=== PATIENT | female | born 1965 | race Hispanic/Latino ===

== ENCOUNTER 2020-12-20 23:07 | Emergency (ER) | payer OTHER ==
[~2020-12-20] VITALS: Ht 160 cm; Wt 76.2 kg
[~2020-12-20 23:07] MED LIST: VALACYCLOVIR1000 MG PO; XODOL 7.5-3001 EACH PO
[2020-12-21] MEDS ORDERED: HYDROCODONE/APAP 10MG-325MG TAB PO ONE
[2020-12-21] MEDS ORDERED: HYDROCODON-ACE1 EAC9 PO (00:18)
[2020-12-24] MEDS ORDERED: ATORVASTATIN CA20 MG PO (13:21)
[2020-12-24] MEDS ORDERED: DEXILANT60 MG PO (13:32)
== END 2020-12-21 00:56 | disposition home or self-care (01) ==
LOC: ER 23:15
DX: S82.045A Nondisplaced comminuted fracture of left patella, initial encounter for closed fracture (principal); W01.0XXA Fall on same level from slipping, tripping and stumbling without subsequent striking against object, initial encounter; Y93.01 Activity, walking, marching and hiking; E78.5 Hyperlipidemia, unspecified; M81.0 Age-related osteoporosis without current pathological fracture
CPT/HCPCS: 99283

== ENCOUNTER → 2020-12-29 | Day surgery (SDC) | payer BC, OTHER ==
[~2020-12-29] MED LIST changes: +ATORVASTATIN CA20 MG PO; +BUPIVACAINE HCL 0.5% INJ 30 ML VIAL INJ ONE; +DEXAMETHASONE SOD PHOS INJ 4 MG/ML SDV ONE; +DEXILANT60 MG PO; +FENTANYL CITRATE/PF 100MCG/2 ML INJ ONE; +HYDROCODON-ACE1 EAC9 PO; +HYDROMORPHONE 1MG/1ML INJ ONE; +KETOROLAC TROMETHAMINE 30 MG/ML VIAL ONE; +LIDOCAINE 1% W/EPINEPHRINE 20 ML VIAL ONE; +LIDOCAINE HCL 2% LOCAL INJ 5 ML SDV VIAL INJ ONE; +MIDAZOLAM HCL 2 MG/2 ML VIAL ONE; +MUPIROCIN 2% OINT 22 GM TUBE ONE; +Morphine 4mg Syringe 4 MG/ML INJ ONE; +ONDANSETRON HCL INJ 2MG/ML 2ML 2 MG/ML VIAL ONE; +POVIDONE IODINE 0.05% 0.05 % ML PO ONE; +PROPOFOL IV EMULSION 10 MG/ML 20 ML VIAL ONE; +SEVOFLURANE INHAL SOLN 250 ML PEN BTL ONE; +SODIUM CHLORIDE 0.9% 50ML 50 ML ONE
[2020-12-29 12:45] VITALS: BP 171/92
== END | disposition home or self-care (01) ==
LOC: OR 08:22
PROVIDERS: ATTEND Specialist
DX: S82.042A Displaced comminuted fracture of left patella, initial encounter for closed fracture (principal); Z01.810 Encounter for preprocedural cardiovascular examination; Z01.812 Encounter for preprocedural laboratory examination; Z20.822 Contact with and (suspected) exposure to COVID-19; Z88.8 Allergy status to other drugs, medicaments and biological substances
CPT/HCPCS: 27524; 93005; C1713; J0690; J1100; J1170; J1885; J2001; J2270; J2405; J2704; J3010; U0002; 76000; J2250